=== PATIENT | female | born 1965 | race Caucasian/White ===

== ENCOUNTER 2021-01-17 16:48 | Emergency (ER) | payer OTHER, SELFPAY ==
--- NOTE | ~2021-01-17 | XR_ITS ---
EXAMINATION: XR foot LT min 3V DATE: 01/17/2021 17:11 INDICATION: Left foot pain TECHNIQUE: Dorsoplantar, lateral, and 2 oblique views of the left foot were obtained. COMPARISON: None. FINDINGS: There is no fracture, dislocation, or subluxation. The joint spaces are unremarkable. IMPRESSION: 1. No acute osseous abnormality. Reviewed, dictated and finalized at location A.
[2021-01-17 16:57] VITALS: BP 111/80; PULSE 74; RESP 16; TEMP 37.6; O2SAT 100
--- NOTE | 2021-01-17 17:36 | ED.LOWEXIN ---
HPI - Extremity Injury (Lower) General Chief Complaint: Extremity Problem,Nontraumatic Stated Complaint: Lt foot pain Time Seen by Provider: 01/17/21 17:22 Source: patient and RN notes reviewed Mode of arrival: ambulatory Limitations: no limitations History of Present Illness HPI Narrative: Patient presents today complaining of left foot pain x3 days that she describes as sharp. Denies any known injury or trauma. Denies any numbness or tingling in the leg or foot. She rates her pain 8/10 with any weightbearing, but she is pain-free at rest. She has tried ibuprofen without relief. Patient typically walks at least 3 miles a day. MD complaint: other (Left foot pain) Related Data Home Medications Medication Instructions Recorded Confirmed ferrous sulfate [FeroSul] 325 mg PO DAILY 01/17/21 01/17/21 Allergies Allergy/AdvReac Type Severity Reaction Status Date / Time Sulfa (Sulfonamide Allergy Intermediate UNKNOWN Verified 01/17/21 17:04 Antibiotics) Review of Systems Review of Systems: CONSTITUTIONAL: Denies body aches, fever, chills, or sweats. EYES: Denies visual changes, redness, or discharge. ENT: Denies rhinorrhea, congestion, sore throat, or otalgia. CARDIOVASCULAR: Denies chest pain, palpitations, or edema. RESPIRATORY: Denies cough or dyspnea. GASTROINTESTINAL: Denies abdominal pain, nausea, vomiting, or diarrhea. GENITOURINARY: Denies dysuria or hematuria. SKIN: Denies rash, itching, or wounds. MUSCULOSKELETAL: Denies back pain, or myalgia. + Left foot pain NEUROLOGIC: Denies headache, numbness, tingling, or weakness. PSYCH: Denies depression or anxiety. PMFSH Comments At time of signature, I have reviewed and agree with nursing past medical, surgical, social and family history unless otherwise noted. Please see nursing chart for further information. There is no relevant family history pertinent to the presenting complaint Exam Narrative: GENERAL: Well-appearing, well-nourished, and in no acute distress. HEAD: Normocephalic, atraumatic. EYES: EOMI. No redness or drainage. Conjunctivae normal. ENT: Mucous membranes pink and moist. NECK: Normal AROM. CHEST: No respiratory distress. EXTREMITIES: Left foot: Point tenderness to the mid fifth metatarsal laterally with palpation. No edema, ecchymosis, erythema noted. Distal sensation intact. Capillary refill normal. Pedal pulse normal. Full range of motion of the ankle and toes. SKIN: Warm, dry, no rash. Capillary refill normal. Normal skin turgor. NEURO: No focal deficits. Alert and oriented x3. Gait steady. PSYCH: Normal affect. No signs of depression or anxiety. Course Vital Signs Vital signs: Vital Signs Temperature 99.6 F 01/17/21 16:57 Pulse Rate 74 01/17/21 16:57 Respiratory Rate 16 01/17/21 16:57 Blood Pressure 111/80 01/17/21 16:57 Pulse Oximetry 100 01/17/21 16:57 Temperature 99.6 F 01/17/21 16:57 Pulse Rate 74 01/17/21 16:57 Respiratory Rate 16 01/17/21 16:57 Blood Pressure 111/80 01/17/21 16:57 Pulse Oximetry 100 01/17/21 16:57 Reviewed MDM - Extremity Injury (Lower) Differential Diagnosis Differential diagnosis: Likely other (Foot fracture, foot sprain) Imaging Data Radiologist's impression: ITS Impressions Foot X-Ray 01/17/21 17:16 IMPRESSION: 1. No acute osseous abnormality. Critical Care Time Critical Care Time Critical Care Time: No Discharge Plan Discharge Clinical Impression: Foot pain, left Patient Disposition: Home, Self-Care Condition: Stable Instructions: Arthralgia (ED) Additional Instructions: Your x-ray is negative for anything concerning today. Continue an anti-inflammatory such as Aleve or ibuprofen for pain. Apply ice. Rest your foot. Follow-up with podiatry for further evaluation and treatment. Patient Language: Micronesian Prescriptions: No Action ferrous sulfate [FeroSul] 325 mg (65 mg iron) tablet 325 mg PO
== END 2021-01-17 17:41 | disposition home or self-care (01) ==
PROVIDERS: Emergency Provider Nurse Practitioner; PCP Nurse Practitioner Psychiatric/Mental Health
DX: M79.672 Pain in left foot (principal)
CPT/HCPCS: 73630; 99213; G0463

== ENCOUNTER 2023-11-04 02:32 | Day surgery (SDC) | payer OTHER, SELFPAY ==
[2023-10-23 08:38] VITALS: BMI 22.8
[2023-11-04 10:03] VITALS: BP 110/84; PULSE 79; RESP 16; TEMP 36.9; O2SAT 100
[2023-11-04] MEDS: LACTATED RINGERS 1,000 ML 150 ML IV CONT (10:12)
--- NOTE | 2023-11-04 10:33 | P.PNAN_ITS ---
Anes - Initial Pre Proc Eval Procedure: Operation Date: 11/04/23 16:00 Proposed Procedures p Esophagogastroduodenoscopy & Colonoscopy - Sergio Lanza MD Date/Time: 11/04/23 10:33 Surgeon: Sergio Lanza MD Pre Op Diagnosis: Dysphagia, eructation, RUQ pain,diarrhea Patient Data Age: 58 Gender: F Height: 1.7 m Weight: 64.8 kg Last Vital Signs Temp 98.5 F 11/04/23 10:03 Pulse 79 11/04/23 10:03 Resp 16 11/04/23 10:03 BP 110/84 11/04/23 10:03 Pulse Ox 100 11/04/23 10:03 O2 Del Method Room Air 11/04/23 10:03 Allergies Allergy/AdvReac Type Severity Reaction Status Date / Time Sulfa (Sulfonamide Allergy Intermediate UNKNOWN Verified 11/04/23 10:02 Antibiotics) Home Medications Medication Instructions Recorded Confirmed Type calcium carbonate 500 mg PO DAILY 10/01/23 10/23/23 History cetirizine 10 mg capsule (All Day 10 mg PO DAILY PRN Allergy Symptoms 10/01/23 10/23/23 History Allergy (cetirizine)) fluticasone propionate 50 1 spray intranasal DAILY 10/01/23 10/23/23 History mcg/actuation nasal spray,suspension (Flonase Allergy Relief) multivitamin (Daily Multi-Vitamin 1 tablet PO DAILY 10/01/23 10/23/23 History tablet) omeprazole 40 mg capsule,delayed 40 mg PO DAILY #30 caps 10/01/23 10/23/23 Rx release Lactobacillus 1 cap PO DAILY 10/23/23 10/23/23 History acidophilus-Bifidobac.animalis 2.5 billion cell capsule (Daily Probiotic) cholecalciferol (vitamin D3) 125 125 mcg PO DAILY 10/23/23 10/23/23 History mcg (5,000 unit) tablet magnesium citrate,mag oxide 250 mg 250 mg PO DAILY 10/23/23 10/23/23 History capsule mecobalamin (vitamin B12) 1,000 1,000 mcg PO DAILY 10/23/23 10/23/23 History mcg chewable tablet montelukast 10 mg tablet 10 mg PO DAILY 10/23/23 10/23/23 History Patient hx anesthesia problems: none Family hx anesthesia problems: none Results Review: All pre-operative results and documents have been reviewed as part of the pre- operative evaluation. [facility] Social History Social History (System 11/02/21 @ 14:15 by Jacque Matta) Smoking status: Never smoker Alcohol intake: current Alcohol use details: 2/MONTH Substance use: never Substance use type: does not use Living arrangements: with family Spiritual care concerns: No Anes - Eval Final PreProcedure Day of Procedure 11/04/23 10:33 Patient weight: normal Heart: regular rate and rhythm Lungs: clear to auscultation Airway: Mallampati scale class II Neurological: alert and oriented Last oral intake: >/= 8 hours ASA classification: II Emergent: no Anesthetic plan: proceed Anesthesia type and monitoring: general GIVS and standard monitoring Results Review: All pre-operative results and documents have been reviewed as part of the pre- operative evaluation. Informed Consent: The patient's anesthetic plan and its attendant risks and benefits were discussed with the patient/family/POA. Questions were solicited and answers provided to the satisfaction of the patient/family/POA.
--- NOTE | 2023-11-04 10:42 | PM.HPGS ---
History of Present Illness History of Present Illness Consent: Risks, benefits, and alternatives have been discussed and questions answered. Patient agrees to proceed with procedure. Chief complaint: Dysphagia, eructation, RUQ pain,diarrhea Narrative: Magi Up is a 58 year old female with ruq discomfort for 5 years, CT scan negative. Also had episode on July of diarrhea with fever self-limited, last colonoscopy 2018 Review of Systems Review of Systems: All systems reviewed & are unremarkable except as noted in HPI and below PMFSH Social History Social History (System 11/02/21 @ 14:15 by Jacque Matta) Smoking status: Never smoker Alcohol intake: current Alcohol use details: 2/MONTH Substance use: never Substance use type: does not use Living arrangements: with family Spiritual care concerns: No Meds Home Medications and Allergies Home Medications Medication Instructions Recorded Confirmed Type calcium carbonate 500 mg PO DAILY 10/01/23 10/23/23 History cetirizine 10 mg capsule (All Day 10 mg PO DAILY PRN Allergy Symptoms 10/01/23 10/23/23 History Allergy (cetirizine)) fluticasone propionate 50 1 spray intranasal DAILY 10/01/23 10/23/23 History mcg/actuation nasal spray,suspension (Flonase Allergy Relief) multivitamin (Daily Multi-Vitamin 1 tablet PO DAILY 10/01/23 10/23/23 History tablet) omeprazole 40 mg capsule,delayed 40 mg PO DAILY #30 caps 10/01/23 10/23/23 Rx release Lactobacillus 1 cap PO DAILY 10/23/23 10/23/23 History acidophilus-Bifidobac.animalis 2.5 billion cell capsule (Daily Probiotic) cholecalciferol (vitamin D3) 125 125 mcg PO DAILY 10/23/23 10/23/23 History mcg (5,000 unit) tablet magnesium citrate,mag oxide 250 mg 250 mg PO DAILY 10/23/23 10/23/23 History capsule mecobalamin (vitamin B12) 1,000 1,000 mcg PO DAILY 10/23/23 10/23/23 History mcg chewable tablet montelukast 10 mg tablet 10 mg PO DAILY 10/23/23 10/23/23 History Allergies Allergy/AdvReac Type Severity Reaction Status Date / Time Sulfa (Sulfonamide Allergy Intermediate UNKNOWN Verified 11/04/23 10:02 Antibiotics) Vital Signs Vital Signs - 24 hr 11/04/23 10:03 Temperature 98.5 F Pulse Rate 79 Respiratory Rate 16 Blood Pressure 110/84 Pulse Oximetry 100 Oxygen Delivery Room Air Exam Const: General: comfortable and no acute distress HENMT: Face/Nose/Sinus: Normal nares present Eyes: General: appearance normal, both eyes and all related structures Neck: Neck: no JVD Resp: Auscultation: clear to auscultation bilaterally Cardio: Rate: regular rate Rhythm: regular rhythm GI: Inspection: non-distended GI Palp: Yes Soft to palpation Skin: General skin exam: normal color Neuro: General: gait normal Speech: normal speech Extrem: General: normal to inspection Psych: Mental Status: mental status grossly normal Assessment and Plan Assessment and plan (1) Diarrhea: Code(s): R19.7 - Diarrhea, unspecified Status: Acute Assessment and Plan: resolved, self-limited colitis colonoscopy (2) Hematochezia: Code(s): K92.1 - Melena Status: Acute (3) RUQ distress: Code(s): R10.11 - Right upper quadrant pain Status: Acute Assessment and Plan: egd
--- NOTE | 2023-11-04 11:02 | SUR.OPER ---
EGD ENDED AT 1050,COLONSCOPY STARTED AT 1055
[2023-11-04 11:10] VITALS: BP 101/65; PULSE 73; RESP 18; O2SAT 97
[2023-11-04 11:20] VITALS: BP 99/64; PULSE 74; RESP 18; O2SAT 98
[2023-11-04 11:30] VITALS: BP 102/69; PULSE 63; RESP 18; O2SAT 100
== END 2023-11-04 11:40 | disposition home or self-care (01) ==
PROVIDERS: PCP Registered Nurse; Referring Provider Nurse Practitioner; Visit Provider Internal Medicine Gastroenterology
PROC: 0DJ08ZZ Inspection of Upper Intestinal Tract, Via Natural or Artificial Opening Endoscopic (ICD-10-PCS; CPT 43235; principal; 2023-11-04 16:00)
DX: K29.50 Unspecified chronic gastritis without bleeding (principal); K29.80 Duodenitis without bleeding; K64.8 Other hemorrhoids; K44.9 Diaphragmatic hernia without obstruction or gangrene; D12.2 Benign neoplasm of ascending colon
CPT/HCPCS: 45385; 43239; 88305; J2704; J7120